=== PATIENT | female | born 2000 | race Hispanic/Latino ===

== ENCOUNTER 2024-01-17 02:43 | Day surgery (SDC) | payer SELFPAY ==
[2024-01-17] MEDS ORDERED: hydrALAZINE 20 MG/ML VIAL SLOW IVP PRN (03:18)
[2024-01-17 04:09] VITALS: BMI 26.2
[2024-01-17] MEDS: Pantoprazole DR 40 MG TAB PO SCH (04:33)
[2024-01-17] MEDS: Lidocaine 2% Viscous Solution 10 ML, Aluminum & Magnesium Hydroxide 30 ML SSW SCH (04:51)
[2024-01-17 05:57] LABS: ALT (SGPT) 46 U/L (8-55); AST (SGOT) 114 U/L (5-34); Albumin 2.7 g/dL (3.5-5.0); Alkaline Phosphatase 79 U/L (40-110); Anion Gap 13 mmol/L (10-20); BUN (Urea Nitrogen) 5 mg/dL (7.0-18.7); Bilirubin, Total 0.5 mg/dL (0.2-1.2); Calc. Creatinine Clearance 153 mL/min (70-130); Calcium 8.7 mg/dL (7.8-10.44); Carbon Dioxide 22 mmol/L (22-29); Chloride 107 mmol/L (98-107); Estimated GFR 132; Globulin 3.5 g/dL (2.4-3.5); Glucose 94 mg/dL (70-105); Lipase 29 U/L (8-78); Potassium 3.5 mmol/L (3.5-5.1); Protein, Total 6.2 g/dL (6.0-8.3); Sodium 138 mmol/L (136-145)
== END 2024-01-17 06:31 | disposition home or self-care (01) ==
LOC: CSHLD/OP 02:43
PROVIDERS: ATTEND Obstetrics & Gynecology
DX: O99.612 Diseases of the digestive system complicating pregnancy, second trimester (principal); K21.9 Gastro-esophageal reflux disease without esophagitis; K29.70 Gastritis, unspecified, without bleeding; O24.419 Gestational diabetes mellitus in pregnancy, unspecified control; Z79.899 Other long term (current) drug therapy; Z3A.26 26 weeks gestation of pregnancy
CPT/HCPCS: 36416; 80053; 83690

== ENCOUNTER 2024-04-09 04:56 | Day surgery (SDC) | payer SELFPAY ==
[2024-04-09 05:25] VITALS: BMI 30.2
[2024-04-09] MEDS ORDERED: hydrALAZINE 20 MG/ML VIAL SLOW IVP PRN (05:51)
[2024-04-10 12:16] LABS: Chlamydia by PCR, Vaginal Swab Not Detected (NotDetected); GC by PCR, Vaginal Swab Not Detected (NotDetected)
== END 2024-04-09 08:20 | disposition home or self-care (01) ==
LOC: CSHLD/OP 04:56
PROVIDERS: ATTEND Obstetrics & Gynecology
DX: O47.1 False labor at or after 37 completed weeks of gestation (principal); O98.813 Other maternal infectious and parasitic diseases complicating pregnancy, third trimester; B95.1 Streptococcus, group B, as the cause of diseases classified elsewhere; O99.891 Other specified diseases and conditions complicating pregnancy; R74.01 Elevation of levels of liver transaminase levels; O98.313 Other infections with a predominantly sexual mode of transmission complicating pregnancy, third trimester; A59.01 Trichomonal vulvovaginitis; A56.02 Chlamydial vulvovaginitis; B37.31 Acute candidiasis of vulva and vagina; O24.419 Gestational diabetes mellitus in pregnancy, unspecified control; Z79.899 Other long term (current) drug therapy; Z3A.38 38 weeks gestation of pregnancy
CPT/HCPCS: 87480; 87491; 87510; 87591; 87660; 99285